=== PATIENT | male | born 1955 | race Caucasian/White ===

== ENCOUNTER 2016-10-10 05:30 | Day surgery (SDC) | payer OTHER ==
[2016-10-09 12:57] LABS: BASOPHILS 0.3 % (0.0-2.0); EOSINOPHILS 2.2 % (0-7); HEMATOCRIT 47.8 % (42.0-54.0); HEMOGLOBIN 16.1 g/dL (13.5-17.5); IMMATURE GRANULOCYTES 0.6 % (0-5); LYMPHOCYTES 31.9 % (15-50); MCH 29.7 pg (26.0-34.0); MCHC 33.7 g/dL (31.0-37.0); MEAN PLATELET VOLUME 8.9 fL (7.4-10.4); PLATELET COUNT 266 10x3/uL (130-400); RBC 5.43 10x6/uL (4.20-6.10); RDW 12.9 % (11.5-14.5); WBC 7.3 10x3/uL (4.8-10.8)
[2016-10-09 13:06] LABS: CALC OSMOLALITY 276 mosm/kg (275-300); CALCIUM 9.1 mg/dL (8.5-10.1); CARBON DIOXIDE 30.8 mmol/L (21.0-32.0); CHLORIDE - SERUM 103 mmol/L (98-107); GLUCOSE 103 mg/dL (74-106); POTASSIUM - SERUM 4.1 mmol/L (3.5-5.1); SODIUM 140 mmol/L (136-145); UREA NITROGEN 8 mg/dL (7-18); eGFR NON AFRICAN AMERICAN 80 mL/min (90-120)
[~2016-10-10] VITALS: Ht 162.6 cm; Wt 83.9 kg
[2016-10-10 06:24] VITALS: BP 143/75; Ht 162.6 cm; Wt 83.9 kg
[2016-10-10] MEDS ORDERED: HYDROCODONE-APA1 TAB PO (08:41)
--- NOTE | 2016-10-10 11:42 | NUR ---
1140 DC INSTS GIVEN, VOICED UNDERSTANDING, RX GIVEN, RELEASED IN WC, [employer] HOME.
--- NOTE | 2016-10-10 13:46 | OP ---
PATIENT NAME: EWA PACKER MEDICAL RECORD: [id number] :51 LOCATION:D.OPS ADMISSION DATE: SURGEON: MUKUND TRENT MD DATE OF OPERATION: 10/10/2016 PREOPERATIVE DIAGNOSES: 1. Umbilical hernia. 2. Hypercholesterolemia. POSTOPERATIVE DIAGNOSES: 1. Umbilical hernia. 2. Hypercholesterolemia. PROCEDURE: Umbilical hernia repair with 4.6 cm Proceed mesh. SURGEON: Mukund Trent MD REPORT OF PROCEDURE: The patient's abdomen was prepped and draped in sterile fashion. A semicircular incision was made on the inferior aspect of the umbilicus. We bluntly dissected around the patient's umbilical stalk and then transected the hernia sac using electrocautery. The hernia defect was inspected and it was about 2 cm in greatest diameter. The fascial edges were freed up and we cleared off the fatty tissue above and below the fascia. A 4.6 cm Proceed mesh was inserted and sutured down on all 4 sides using interrupted 0 Prolenes. The midline fascia was closed with running 0 Vicryls. The wound was then irrigated out with normal saline. The umbilicus was then tacked down with interrupted 3-0 Vicryl and subcutaneous tissue was reapproximated with interrupted 3-0 Vicryls. The skin was closed with running subcutaneous 5-0 Monocryl. A total of 10 cc of 1% lidocaine with epinephrine was infused into the surrounding tissues and the wound was dressed appropriately. COMPLICATIONS: None. CONDITION: Stable. ANESTHESIA: General endotracheal and local. BLOOD LOSS: Minimal. TRANSINT:[id number] Voice Confirmation ID: [id number] DOCUMENT ID: [id number] MUKUND TRENT MD at 1346 CC: ELADIA GERMAN DO [id number] DICTATION DATE: 10/10/16 0844 VET ASSISTANT: 10/10/16 0926 [facility] 10/10/16 [place] [id number]
== END 2016-10-10 11:40 | disposition home or self-care (01) ==
LOC: D.OPS 05:30 → D.PAN 07:30 → D.OPS 07:30
PROVIDERS: Surgery
DX: K42.9 Umbilical hernia without obstruction or gangrene (principal); E78.00 Pure hypercholesterolemia, unspecified

== ENCOUNTER → 2018-01-03 08:34 | Outpatient (CLI) | payer MEDICARE, OTHER ==
[2016-10-10 06:24] VITALS: BMI 31.8
[~2018-01-03 08:34] MED LIST: HYDROCODONE-APA1 TAB PO
== END | disposition home or self-care (01) ==
LOC: D.CT 08:34
DX: J01.90 Acute sinusitis, unspecified (principal)

== ENCOUNTER → 2018-06-17 09:04 | Outpatient (CLI) | payer MEDICARE, OTHER ==
[2016-10-10 06:24] VITALS: BMI 31.8
== END | disposition home or self-care (01) ==
LOC: D.RAD 09:04
DX: M75.121 Complete rotator cuff tear or rupture of right shoulder, not specified as traumatic (principal); X58.XXXA Exposure to other specified factors, initial encounter